=== PATIENT | female | born 1985 | race Caucasian/White ===

== ENCOUNTER 2024-11-05 19:01 | Emergency (ER) | payer MEDICAID, MEDICARE ==
[~2024-11-05] VITALS: Ht 154.9 cm; Wt 54.5 kg
[2024-11-05 19:02] VITALS: O2SAT 99
[2024-11-05] MEDS ORDERED: AMOX1TAB16 MT (19:59)
[2024-11-05 20:40] VITALS: BP 102/50; PULSE 82; RESP 14; TEMP 36.9; O2SAT 99
== END 2024-11-05 20:42 | disposition home or self-care (01) ==
LOC: ER 19:01
DX: K08.89 Other specified disorders of teeth and supporting structures (principal)
CPT/HCPCS: 99283